=== PATIENT | female | born 2005 | race Caucasian/White ===

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

== ENCOUNTER 2023-04-14 21:15 | Outpatient (CLI) | payer OTHER, MEDICAID | END 2023-04-14 23:59 | disposition short-term general hospital (02) | LOC: EMS 21:15 | DX: R10.84 Generalized abdominal pain (principal); R11.2 Nausea with vomiting, unspecified; R00.0 Tachycardia, unspecified | CPT/HCPCS: A0425; A0429 ==